=== PATIENT | female | born 1990 | race Caucasian/White ===

== ENCOUNTER 2016-09-22 11:22 | Emergency (ER) | payer BC ==
[2016-09-22 11:27] VITALS: RESP 18
[2016-09-22] MEDS ORDERED: predniSONE 50 MG TAB PO STA (11:58)
--- NOTE | 2016-09-22 12:10 | ED ---
Back Pain HPI - General Chief Complaint: Back Pain/Injury Stated Complaint: back pain Time Seen by Provider: 09/22/16 11:38 Source: patient, RN notes reviewed Limitations: no limitations - History of Present Illness Initial Comments: Patient is a 26-year-old female presents to the emergency room for evaluation of left-sided low back pain. Patient states she woke up this morning with low back pain that radiates into her left hip and leg. Patient states he had back pain before. Patient denies any specific injury or trauma to her back. Patient does states she recently began a workout regimen since April. Patient is states she was in a car for 2 hours yesterday. Patient denies saddle anesthesia. Patient denies urinary or fecal incontinence. Patient states this morning when she woke up, the pain is radiating to the left side of her hip and felt like a burning sensation. Patient states she still able to walk. Patient denies calf pain. Patient denies any pain or burning during urination, trouble urinating or blood in urine. Patient has headache or dizziness. Patient denies any other symptoms or complaints. - Related Data Previous Rx's Medication Instructions Recorded Orphenadrine [Norflex] 100 mg PO Q12H PRN #12 tablet.er 09/22/16 predniSONE 50 mg PO DAILY #5 tab 09/22/16 Allergies Allergy/AdvReac Type Severity Reaction Status Date / Time No Known Allergies Allergy Verified 09/22/16 11:49 Review of Systems ROS Statement: Those systems with pertinent positive or pertinent negative responses have been documented in the HPI. ROS Other: All systems not noted in ROS Statement are negative. Past Medical History Past Medical History: Asthma History of Any Multi-Drug Resistant Organisms: None Reported Past Surgical History: No Surgical Hx Reported Additional Past Surgical History / Comment(s): wisdom teeth extraction Past Psychological History: No Psychological Hx Reported Smoking Status: Never smoker Past Alcohol Use History: Rare Past Drug Use History: None Reported General Exam - General Exam Comments Initial Comments: sitting in exam room, no distress. Limitations: no limitations General appearance: alert, in no apparent distress Head exam: Present: atraumatic, normocephalic, normal inspection Eye exam: Present: normal appearance ENT exam: Present: normal exam Neck exam: Present: normal inspection Respiratory exam: Present: normal lung sounds bilaterally. Absent: respiratory distress Cardiovascular Exam: Present: regular rate, normal rhythm, normal heart sounds Back exam: Present: normal inspection Expanded Back exam: Sciatic Notch Tenderness: Left Neurological exam: Present: alert, oriented X3, CN II-XII intact, normal gait Psychiatric exam: Present: normal affect, normal mood Skin exam: Present: warm, dry, intact, normal color. Absent: rash Course Vital Signs 09/22/16 09/22/16 11:23 12:15 Temperature 97.8 F 98.0 F Pulse Rate 108 H 88 Respiratory 18 18 Rate Blood Pressure 131/67 140/84 O2 Sat by Pulse 99 98 Oximetry Medical Decision Making - Medical Decision Making Patient is a 26-year-old female presents emergency room for evaluation left- sided low back pain. Pain radiates from left lower back and sciatic notch. Patient does appear to have sciatica. Patient be placed on prednisone and muscle relaxers and advised to follow-up with primary care provider. Patient has no neuro deficits. Patient was offered x-rays and declined. Return parameters discussed. Case discussed with Dr. Nam. Disposition Clinical Impression: Sciatica of left side Disposition: HOME SELF-CARE Condition: Good Instructions: Sciatica (ED) Additional Instructions: Alternate ice and heat. Take medications as directed. Please follow up with primary care provider in 1-2 days. If any new symptom arises or symptoms worsen , return to ER as soon as possible. Prescriptions: Orphenadrine [Norflex] 100 mg PO Q12H PRN #12 tablet.er PRN Reason: Pain predniSONE 50 mg PO DAILY #5 tab Referrals: Yfn Corbett DO [Primary Care Provider] - 1-2 days Time of Disposition: 12:08
[2016-09-22 12:19] VITALS: BP 140/84; PULSE 88; TEMP 98
== END 2016-09-22 12:15 | disposition home or self-care (01) ==
LOC: EC 11:22
DX: M54.32 Sciatica, left side (principal)
CPT/HCPCS: 99283; J7512

== ENCOUNTER 2017-08-03 17:01 | Emergency (ER) | payer BC ==
[2017-08-03 17:07] VITALS: BP 138/85; PULSE 101; RESP 16; TEMP 98.5
[2017-08-03] MEDS ORDERED: IBUPROFEN 600 MG TAB PO STA (17:21)
--- NOTE | 2017-08-03 17:23 | ED ---
Lower Extremity Injury HPI - General Chief Complaint: Extremity Injury, Lower Stated Complaint: Foot pain Time Seen by Provider: 08/03/17 17:15 Source: patient, RN notes reviewed Mode of arrival: wheelchair Limitations: no limitations - History of Present Illness Initial Comments: This is a 27-year-old female who presents to the emergency department with chief complaint of left foot/ankle injury. Patient states approximately one hour ago she fell down 3 steps. She states that she twisted her left foot and ankle. She states that she has difficulty bearing weight and ambulating. The majority of her pain is on the lateral aspect of her foot. Denies any other injuries or trauma. Denies head injury. Denies recent fevers or chills, chest pain or shortness of breath, abdominal pain, nausea or vomiting. - Related Data Home Medications Medication Instructions Recorded Confirmed Levothyroxine Sodium [Synthroid] 100 mcg PO DAILY 08/03/17 08/03/17 Allergies Allergy/AdvReac Type Severity Reaction Status Date / Time No Known Allergies Allergy Verified 08/03/17 17:07 Review of Systems ROS Statement: Those systems with pertinent positive or pertinent negative responses have been documented in the HPI. ROS Other: All systems not noted in ROS Statement are negative. Past Medical History Past Medical History: Asthma Additional Past Medical History / Comment(s): thyroid radioactive treatment History of Any Multi-Drug Resistant Organisms: None Reported Past Surgical History: No Surgical Hx Reported Additional Past Surgical History / Comment(s): wisdom teeth extraction Past Psychological History: No Psychological Hx Reported Smoking Status: Never smoker Past Alcohol Use History: Occasional Past Drug Use History: None Reported General Exam - General Exam Comments Initial Comments: General: Awake and alert, well-developed; in no apparent distress. HEENT: Head atraumatic, normocephalic. Pupils are equal, round and reactive to light. Extraocular movements intact. Oropharynx moist without erythema or exudate. Neck: Supple. Normal ROM. Cardiovascular: Regular rate and rhythm. No murmurs, rubs or gallops. Chest symmetrical. Respiratory: Lungs clear to auscultation bilaterally. No wheezes, rales or rhonchi. Normal respiratory effort with no use of accessory muscles. Musculoskeletal: Normal range of motion of the left ankle. There is tenderness distal to the lateral malleolus and along the fifth metatarsal of the left foot. Generalized mild soft tissue swelling on the lateral aspect. No medial malleolar tenderness. Sensation is intact. Pedal pulses are 2+ equal and palpable bilaterally. No tenderness on palpation of the proximal tibia and fibula. Skin: [place], warm and dry without rashes or lesions. Neurological: Alert and oriented x3. CN II-XII grossly intact. Speech is fluent and answers are appropriate. No focal neuro deficits. Psychiatric: Normal mood and affect. No overt signs of depression or anxiety noted. Limitations: no limitations Course Vital Signs 08/03/17 17:04 Temperature 98.5 F Pulse Rate 101 H Respiratory 16 Rate Blood Pressure 138/85 O2 Sat by Pulse 99 Oximetry Medical Decision Making - Medical Decision Making This is a 27-year-old female presents to the emergency department with chief complaint of left foot and ankle injury. Patient fell down 3 steps prior to arrival and twisted her left ankle. She is tender on the lateral aspect of her left ankle and foot. X-ray was obtained and revealed no evidence for acute fractures or dislocations. There is pronounced soft tissue swelling. Patient likely suffering from an acute ankle sprain. Patient given an air cast. She will also be given contact information for orthopedics if no improvement in her symptoms. Patient vital signs are stable and she is in no acute distress. She will be discharged home at this time. Recommend rest, ice, elevation and ibuprofen as needed for pain. She is in agreement with plan and voices understanding. All questions answered. - Radiology Data Radiology results: report reviewed, image reviewed X-ray left ankle and left foot impression: Pronounced soft tissue swelling about the left ankle joint with no acute fracture or dislocation in the left ankle or foot. Disposition Clinical Impression: Ankle sprain and strain Disposition: HOME SELF-CARE Condition: Good Instructions: Ankle Sprain (ED), Ankle Stirrup Splint (ED) Additional Instructions: Please rest, ice, elevate and wear air splint while ambulating. May take Tylenol or ibuprofen for pain and inflammation. Please follow up with Dr. Glover, orthopedics, if no improvement in symptoms. Please follow up with primary care provider within 1-2 days. Return to emergency department if symptoms should worsen or any concerns arise. Is patient prescribed a controlled substance at d/c from ED?: No Referrals: Jose Jones DO [Primary Care Provider] - 1-2 days Time of Disposition: 18:23
--- NOTE | 2017-08-03 18:13 | XR ---
EXAMINATION TYPE: XR ankle complete LT, XR foot complete LT DATE OF EXAM: 08/03/2017 CLINICAL HISTORY: Ankle and foot pain after fall TECHNIQUE: Frontal, lateral and oblique images of the left ankle and foot are obtained. COMPARISON: None. FINDINGS: There is pronounced soft tissue swelling over the left ankle joint. There is no acute frac ture/dislocation evident in the left ankle. The ankle mortise appears within normal limits. Small in fracalcaneal plantar heel spur is present. Incidental note is made of a type II navicular bone There is no acute fracture or dislocation evident in the foot. The joint spaces in the left foot are prese rved. Overlying soft tissue is unremarkable. IMPRESSION: Pronounced soft tissue swelling about the left ankle joint with no acute fracture or dislocation in t he left ankle or foot.
== END 2017-08-03 18:52 | disposition home or self-care (01) ==
LOC: EC 17:01
DX: S93.402A Sprain of unspecified ligament of left ankle, initial encounter (principal); S96.912A Strain of unspecified muscle and tendon at ankle and foot level, left foot, initial encounter; Z79.899 Other long term (current) drug therapy; W10.9XXA Fall (on) (from) unspecified stairs and steps, initial encounter; X50.1XXA Overexertion from prolonged static or awkward postures, initial encounter
CPT/HCPCS: 73610; 73630; 99283; 29515; L4350

== ENCOUNTER → 2020-10-06 | Outpatient (CLI) | payer BC ==
--- NOTE | 2020-10-06 12:16 | US ---
EXAMINATION TYPE: Ultrasound OB <= 14 week transvaginal DATE OF EXAM: 10/06/2020 12:03 PM COMPARISON: NONE CLINICAL HISTORY: 30-year-old female O76 absent heart tones. EXAM PERFORMED: Transvaginal (TV) and Transabdominal (TA) FINDINGS: EXAM MEASUREMENTS: GESTATIONAL AGE / DATING Physician Established: (10 weeks/4 days) EDC: 04/30/2021 Dates by LMP: (10 weeks/4 days) EDC: 04/30/2021 Dates by First Scan: No previous this is first scan Dates by Current Scan for: (10 weeks/4 days) EDC: 04/30/2021 MATERNAL ANATOMY Uterus: 10.8 x 7.8 x 8 Right Ovary: Obscured by bowel gas. Left Ovary: Obscured by bowel gas. Post CDS / Adnexa: wnl Presence of free fluid: no Presence of corpus luteal cyst: no Presence of subchorionic bleed: no GESTATION / SURVEY CRL: 3.67 cm (10 weeks/4 days) Yolk Sac (normal less than 6mm): 5 mm Heart Rate: 170 bpm Rhythm: Normal IUP: Viable IUP Beta HcG (if available): Not available at this time IMPRESSION: 1. Single live intrauterine with estimated gestational age of 10 weeks 4 days by LMP. Curre nt ultrasound biometry is exactly concordant. 2. Given heart rate at the upper limits of normal (170 BPM), short interval follow-up can be co nsidered. 3. Otherwise, complete survey recommended at 18-20 weeks.
== END | disposition home or self-care (01) ==
LOC: RADUSWWP 11:33
PROVIDERS: ATTEND Obstetrics & Gynecology Obstetrics
DX: O76 Abnormality in fetal heart rate and rhythm complicating labor and delivery (principal); Z3A.00 Weeks of gestation of pregnancy not specified
CPT/HCPCS: 76801; 76817

== ENCOUNTER → 2021-02-14 | Outpatient (CLI) | payer BC ==
[~2021-02-14] MED LIST: AMPICILLIN 2,000 MG VIAL IVPB ONE; BETAMET ACET-BETAMETH SOD PHOS 6 MG/ML MDV IM ONE; LACTATED RINGERS 1,000 ML BAG IV ONE; SODIUM CHLORIDE 0.9% 100 ML BAG ONE
--- NOTE | 2021-02-15 10:16 | US ---
EXAMINATION TYPE: US OB >= 14 wk fetus DATE OF EXAM: 02/15/2021 COMPARISON: None CLINICAL HISTORY: GROWTH, ALISON, POSITION, TECHNIQUE: OBTA GESTATIONAL AGE / DATING Physician Established: (29 weeks/2 days) EDC: 04/30/2021 Dates by LMP: (29 weeks/2 days) EDC: 04/30/2021 Dates by First Scan: (29 weeks/2 days) EDC: 04/30/2021 Dates by Current Scan: (30 weeks/0 days) EDC: 04/25/2021 SURVEY IUP: Single PLACENTA: Anterior PREVIA: No Previa ALISON: 0 cm CERVICAL LENGTH (transabdominal: norm > 3.0cm): 4.1 cm BIOMETRY PRESENTATION: Variable LIE: Transverse with head maternal L BPD: 7.3 cm 29 weeks / 3 days HC: 27.7 cm 30 weeks / 2 days AC: 27.2 cm 31 weeks / 2 days FL: 5.8 cm 30 weeks / 3 days ESTIMATED WEIGHT IN GRAMS: 1635 grams ESTIMATED WEIGHT IN LBS/OZ: 3 lbs. 10 oz. WEIGHT PERCENTAGE BASED ON ESTABLISHED DATES: 87% HC/AC: 1.0 Normal FL/AC: 21.4 Normal HEART RATE: 168 bpm RHYTHM: Normal No significant amniotic fluid is identified. IMPRESSION: 1. Single intrauterine gestation estimated at 30 weeks 0 days gestation based on current ultrasound m easurements. Cardiac activity in the cephalic presentation fetus is 168 bpm. 2. No significant amniotic fluid identified. 3. Preliminary results were reviewed by [facility].
== END ==
LOC: FBPOP 23:00
PROVIDERS: ATTEND Obstetrics & Gynecology Obstetrics
DX: O42.92 Full-term premature rupture of membranes, unspecified as to length of time between rupture and onset of labor (principal); Z3A.39 39 weeks gestation of pregnancy
CPT/HCPCS: 76805; 96361; 96365; 96372; 99214

== ENCOUNTER 2024-02-12 22:42 | Emergency (ER) | payer BC ==
[2024-02-12 23:01] VITALS: RESP 18; TEMP 97.8
--- NOTE | 2024-02-12 23:33 | ED ---
Female Urogenital HPI - General Chief complaint: Vaginal Bleeding Stated complaint: Vaginal bleeding Time Seen by Provider: 02/12/24 23:02 Source: patient, RN notes reviewed Mode of arrival: ambulatory Limitations: no limitations - History of Present Illness Initial comments: This is a 33-year-old female who presents to the emergency department for vagin al bleeding. Patient states that she has had vaginal bleeding ongoing for the last 3 weeks. She went to [facility] on 02/07. States that she had an ultrasound done and was told that something was blocking the right ovary, but she is unsure what. She tried to make an appointment with her RAIL CAR REPAIRER but was unable to get in until later this month. After that visit the bleeding had stopped for 3 days and then started again today. States that she has changed her diet and read that that could cause problems with her bleeding. She is not on any control or hormonal treatments. States that her periods are usually always regular. She is on thyroid medication and has not had her thyroid checked in about 6 months. She did start to develop pelvic pain and cramping today. She had some nausea earlier that has since resolved. States that she is changing pads about every 30 minutes. MD Complaint: vaginal bleeding Last Menstrual Period: 01/20/24 - Related Data Home Medications Medication Instructions Recorded Confirmed Levothyroxine Sodium [Synthroid] 100 mcg PO DAILY 08/03/17 08/03/17 Allergies Allergy/AdvReac Type Severity Reaction Status Date / Time No Known Allergies Allergy Verified 08/03/17 17:07 Review of Systems ROS Statement: Those systems with pertinent positive or pertinent negative responses have been documented in the HPI. ROS Other: All systems not noted in ROS Statement are negative. Past Medical History Past Medical History: Asthma Additional Past Medical History / Comment(s): thyroid radioactive treatment History of Any Multi-Drug Resistant Organisms: None Reported Past Surgical History: No Surgical Hx Reported Additional Past Surgical History / Comment(s): wisdom teeth extraction, c- section (02/18/21) Past Psychological History: No Psychological Hx Reported Smoking Status: Never smoker Past Alcohol Use History: Occasional Past Drug Use History: None Reported General Exam Limitations: no limitations General appearance: alert, in no apparent distress Head exam: Present: atraumatic, normocephalic, normal inspection Respiratory exam: Present: normal lung sounds bilaterally. Absent: respiratory distress, wheezes, rales, rhonchi, stridor Cardiovascular Exam: Present: regular rate, normal rhythm, normal heart sounds. Absent: systolic murmur, diastolic murmur, rubs, gallop, clicks GI/Abdominal exam: Present: soft, normal bowel sounds. Absent: distended, tenderness, guarding, rebound, rigid Neurological exam: Present: alert, oriented X3, CN II-XII intact Psychiatric exam: Present: normal affect, normal mood Skin exam: Present: warm, dry, intact, normal color. Absent: rash Course Vital Signs 02/12/24 02/13/24 02/13/24 22:55 01:21 02:19 Temperature 97.8 F Pulse Rate 105 H 72 74 Respiratory 18 18 18 Rate Blood Pressure 124/83 101/49 97/58 O2 Sat by Pulse 96 97 98 Oximetry Medical Decision Making - Medical Decision Making This is a 33-year-old female who presents to the emergency department for vaginal bleeding. Was pt. sent in by a medical professional or institution? @ -No Did you speak to anyone other than the patient for history? @ -No Did you review nursing and triage notes? @ -Yes, and I agree, it is accurate with regards to the patient's symptoms. Were old charts reviewed? @ -Hemoglobin at [facility] from 02/08/2024 which was 10.3. Differential Diagnosis? @ -Differential Vaginal Bleeding: Spontaneous , threatened , molar , ectopic , incompetent cervix, placenta previa, uterine rupture, dysfunctional uterine bleeding, hemorrhage, uterine fibroids, malignancy, coagulopathy, PID, cervicitis, adenomyosis, vaginal trauma, this is not meant to be an all- inclusive list. EKG interpreted by me (3pts min.)? @ -Not obtained X-rays interpreted by me (1pt min.)? @ -Not obtained CT interpreted by me (1pt min.)? @ -Not obtained U/S interpreted by me (1pt. min.)? @ -Transvaginal ultrasound obtained. My interpretation identifies no evidence of an ovarian torsion. What testing was considered but not performed? (CT, X-rays, U/S, labs)? Why? @ -None What meds were considered but not given? Why? @ -None Did you discuss the management of the patient with other professionals? @ -No Did you reconcile home meds? @ -No Was smoking cessation discussed for >3mins.? @ -No Was critical care preformed (if so, how long)? @ -No Were there social determinants of health that impacted care today? How? (Homelessness, low income, unemployed, alcoholism, drug addiction, transportation, low edu. Level, literacy, decrease access to med. care, halfway, rehab)? @ -No Was there de-escalation of care discussed even if they declined? (Discuss DNR or withdrawal of care, Hospice)? @ -No What co-morbidities impacted this encounter? (DM, HTN, Smoking, COPD, CAD, Cancer, CVA, Hep., AIDS, mental health diagnosis, sleep apnea, morbid obesity)? @ -Thyroid disorder Was patient admitted / discharged? @ -Discharged. Lab work demonstrates a hemoglobin of 10.5. This is stable whe n compared with 02/07 at [facility] when it was 10.3. TSH elevated at 65.1, however free T4 is within normal limits at 1.05. Urinalysis demonstrates blood but is not overly suggestive of infection. Transvaginal ultrasound obtained demonstrating a thickened endometrial echocomplex c orresponding to patient's history of a vaginal bleed. A left ovarian cyst is also noted. Findings reviewed with the patient. Advised [id number] NSAIDs to help with both pain and bleeding. She will otherwise follow-up with her RAIL CAR REPAIRER for further evaluation and management. Patient discharged home in stable condition. Case discussed with ED attending Dr. Keane. Return precautions reviewed in depth, the patient is instructed to return to the emergency department with any new, worsening, or concerning symptoms. Patient verbalized understanding. Undiagnosed new problem with uncertain prognosis? @ -None Drug Therapy requiring intensive monitoring for toxicity (Heparin, Nitro, Insulin, Cardizem)? @ -None Were any procedures done? @ -None Diagnosis/symptom? @ -Dysfunctional uterine bleeding Acute, or Chronic, or Acute on Chronic? @ -Acute Uncomplicated (without systemic symptoms) or Complicated (systemic symptoms)? @ -Uncomplicated Side effects of treatment? @ -None Exacerbation, Progression, or Severe Exacerbation] @ -Not applicable Poses a threat to life or bodily function? @ -No - Lab Data Result diagrams: 02/12/24 23:26 02/12/24 23:26 Lab Results 1202/12/24 02/12/24 Range/Units 23:26 23:26 23:26 WBC 7.8 (3.8-10.6) k/uL RBC 3.61 L (3.80-5.40) m/uL Hgb 10.5 L (11.4-16.0) gm/dL Hct 30.4 L (34.0-46.0) % MCV 84.2 (80.0-100.0) fL MCH 29.1 (25.0-35.0) pg MCHC 34.6 (31.0-37.0) g/dL RDW 13.8 (11.5-15.5) % Plt Count 361 (150-450) k/uL MPV 7.5 Neutrophils % 59 % Lymphocytes % 31 % Monocytes % 5 % Eosinophils % 3 % Basophils % 1 % Neutrophils # 4.6 (1.3-7.7) k/uL Lymphocytes # 2.4 (1.0-4.8) k/uL Monocytes # 0.4 (0-1.0) k/uL Eosinophils # 0.3 (0-0.7) k/uL Basophils # 0.1 (0-0.2) k/uL Hypochromasia Slight PT 10.2 (10.0-12.5) sec INR 0.9 (<1.2) APTT 24.7 (22.0-30.0) sec Sodium 133 L (137-145) mmol/L Potassium 3.8 (3.5-5.1) mmol/L Chloride 101 (98-107) mmol/L Carbon Dioxide 22 (22-30) mmol/L Anion Gap 10 mmol/L BUN 10 (7-17) mg/dL Creatinine 0.93 (0.52-1.04) mg/dL Est GFR (CKD-EPI)AfAm >90 (>60 ml/min/1.73 sqM) Est GFR (CKD-EPI)NonAf 82 (>60 ml/min/1.73 sqM) Glucose 89 (74-99) mg/dL Plasma Lactic Acid Albert (0.7-2.0) mmol/L Calcium 9.3 (8.4-10.2) mg/dL Total Bilirubin 0.5 (0.2-1.3) mg/dL AST 23 (14-36) U/L ALT 23 (4-34) U/L Alkaline Phosphatase 58 (38-126) U/L Total Protein 6.5 (6.3-8.2) g/dL Albumin 4.0 (3.5-5.0) g/dL TSH 65.100 H (0.465-4.680) mIU/L Free T4 1.05 (0.78-2.19) ng/dL Urine Color Urine Appearance (Clear) Urine pH (5.0-8.0) Ur Specific [place] (1.001-1.035) Urine Protein (Negative) Urine Glucose (UA) (Negative) Urine Ketones (Negative) Urine Blood (Negative) Urine Nitrite (Negative) Urine Bilirubin (Negative) Urine Urobilinogen (<2.0) mg/dL Ur Leukocyte Esterase (Negative) Urine RBC (0-5) /hpf Urine WBC (0-5) /hpf Ur Squamous Epith Cells (0-4) /hpf Urine Bacteria (None) /hpf Urine HCG, Qual (Not Detectd) 02/12/24 02/13/24 02/13/24 Range/Units 23:26 00:47 00:47 WBC (3.8-10.6) k/uL RBC (3.80-5.40) m/uL Hgb (11.4-16.0) gm/dL Hct (34.0-46.0) % MCV (80.0-100.0) fL MCH (25.0-35.0) pg MCHC (31.0-37.0) g/dL RDW (11.5-15.5) % Plt Count (150-450) k/uL MPV Neutrophils % % Lymphocytes % % Monocytes % % Eosinophils % % Basophils % % Neutrophils # (1.3-7.7) k/uL Lymphocytes # (1.0-4.8) k/uL Monocytes # (0-1.0) k/uL Eosinophils # (0-0.7) k/uL Basophils # (0-0.2) k/uL Hypochromasia PT (10.0-12.5) sec INR (<1.2) APTT (22.0-30.0) sec Sodium (137-145) mmol/L Potassium (3.5-5.1) mmol/L Chloride (98-107) mmol/L Carbon Dioxide (22-30) mmol/L Anion Gap mmol/L BUN (7-17) mg/dL Creatinine (0.52-1.04) mg/dL Est GFR (CKD-EPI)AfAm (>60 ml/min/1.73 sqM) Est GFR (CKD-EPI)NonAf (>60 ml/min/1.73 sqM) Glucose (74-99) mg/dL Plasma Lactic Acid Albert 0.9 (0.7-2.0) mmol/L Calcium (8.4-10.2) mg/dL Total Bilirubin (0.2-1.3) mg/dL AST (14-36) U/L ALT (4-34) U/L Alkaline Phosphatase (38-126) U/L Total Protein (6.3-8.2) g/dL Albumin (3.5-5.0) g/dL TSH (0.465-4.680) mIU/L Free T4 (0.78-2.19) ng/dL Urine Color Light Red Urine Appearance Cloudy H (Clear) Urine pH 5.0 (5.0-8.0) Ur Specific [place] 1.014 (1.001-1.035) Urine Protein 1+ H (Negative) Urine Glucose (UA) Negative (Negative) Urine Ketones 3+ H (Negative) Urine Blood Large H (Negative) Urine Nitrite Negative (Negative) Urine Bilirubin Negative (Negative) Urine Urobilinogen <2.0 (<2.0) mg/dL Ur Leukocyte Esterase Trace H (Negative) Urine RBC >182 H (0-5) /hpf Urine WBC 3 (0-5) /hpf Ur Squamous Epith Cells 4 (0-4) /hpf Urine Bacteria Rare H (None) /hpf Urine HCG, Qual Not Detected (Not Detectd) - Radiology Data Radiology results: report reviewed, image reviewed Disposition Clinical Impression: Dysfunctional uterine bleeding Disposition: HOME SELF-CARE Instructions (If sedation given, give patient instructions): Abnormal (Dysfunctional) Uterine Bleeding (ED) Additional Instructions: Return to the emergency department with any new, worsening, or concerning symptoms. Taking anti-inflammatories like ibuprofen or naproxen [id number] can help slow down and reduce the bleeding. Follow-up with your RAIL CAR REPAIRER as scheduled. Is patient prescribed a controlled substance at d/c from ED?: No Referrals: Ras Barney MD [Primary Care Provider] - 1-2 days Time of Disposition: 03:47
[2024-02-12 23:40] LABS: Basophils # (A) 0.1 k/uL (0-0.2); Basophils % (A) 1 %; Eosinophils # (A) 0.3 k/uL (0-0.7); Eosinophils % (A) 3 %; HCT 30.4 % (34.0-46.0); HGB 10.5 gm/dL (11.4-16.0); Hypochromasia Slight; Lymphocytes # (A) 2.4 k/uL (1.0-4.8); Lymphocytes % (A) 31 %; MCH 29.1 pg (25.0-35.0); MCHC 34.6 g/dL (31.0-37.0); MCV 84.2 fL (80.0-100.0); Mean Platelet Volume 7.5; Monocytes # (A) 0.4 k/uL (0-1.0); Monocytes % (A) 5 %; Neutrophils # (A) 4.6 k/uL (1.3-7.7); Neutrophils % (A) 59 %; Platelet Count 361 k/uL (150-450); RBC 3.61 m/uL (3.80-5.40); RDW 13.8 % (11.5-15.5); WBC 7.8 k/uL (3.8-10.6)
[2024-02-12 23:49] LABS: INR 0.9 (<1.2); Partial Thromboplastin Time 24.7 sec (22.0-30.0); Prothrombin Time 10.2 sec (10.0-12.5)
[2024-02-12 23:50] LABS: ALT 23 U/L (4-34); AST 23 U/L (14-36); African American GFR (CKD) >90 (>60 ml/min/1.73 sqM); Alkaline Phosphatase 58 U/L (38-126); Anion Gap 10 mmol/L; Blood Urea Nitrogen 10 mg/dL (7-17); Calcium 9.3 mg/dL (8.4-10.2); Carbon Dioxide 22 mmol/L (22-30); Chloride 101 mmol/L (98-107); Glucose 89 mg/dL (74-99); Non-African American GFR(CKD) 82 (>60 ml/min/1.73 sqM); Potassium 3.8 mmol/L (3.5-5.1); Sodium 133 mmol/L (137-145); Total Bilirubin 0.5 mg/dL (0.2-1.3); Total Protein 6.5 g/dL (6.3-8.2)
[2024-02-13] MEDS: KETOROLAC 15 MG/ML 1 ML VIAL IVP STA (00:38)
[2024-02-13 00:45] LABS: T4, Free (Free Thyroxine) 1.05 ng/dL (0.78-2.19)
[2024-02-13 00:59] LABS: Appearance,Urine Cloudy (Clear); Bacteria,Urine Rare /hpf; Bilirubin,Urine Negative (Negative); Blood,Urine Large (Negative); Color,Urine Light Red; Glucose,Urine (UA) Negative (Negative); Ketones,Urine 3+ (Negative); Leukocyte Esterase,Urine Trace (Negative); Nitrite,Urine Negative (Negative); Protein,Urine 1+ (Negative); RBC,Urine >182 /hpf (0-5); Specific Gravity,Urine 1.014 (1.001-1.035); Squamous Epithelial Cell,Urine 4 /hpf (0-4); Urobilinogen,Urine <2.0 mg/dL (<2.0); WBC,Urine 3 /hpf (0-5)
[2024-02-13 02:20] VITALS: PULSE 74
--- NOTE | 2024-02-13 03:29 | US ---
EXAM: US Pelvis Transvaginal CLINICAL HISTORY: Female, 33 years old with history of Pelvic pain and vaginal bleeding; Patient states vaginal bleeding for 3+ weeks with clotting. Had TV ultrasound done at [facility] a few days ago TECHNIQUE: Transvaginal pelvic ultrasound. 35 images COMPARISON: NONE FINDINGS: Date of LMP: Bleeding for 3+ weeks Anteverted Uterus: Normal echotexture, contour, and size, measuring about 8.6 x 4.9 x 5.9cm. Endometrial Stripe: Normal echotexture measuring about 2.2 cm in thickness Right Ovary: Obscured by overlying bowel gas Left Ovary: Measuring about 5.2 x 5.2 x 5.0 containing a 4.3 x 4.2 x 3. 5cm cyst. IMPRESSION: 1. Thickened endometrial echocomplex corresponds to patient's history of vaginal bleed. Consider follow-up after 1-2 menstrual cycles. If thickened endometrial echo complex persists, hysteroscopy or biopsy may help to further evaluate. 2. Left ovarian cyst.
[2024-02-13 03:59] VITALS: BP 111/55
== END 2024-02-13 03:58 | disposition home or self-care (01) ==
LOC: EC 22:42
DX: N93.8 Other specified abnormal uterine and vaginal bleeding (principal); N83.202 Unspecified ovarian cyst, left side; E07.9 Disorder of thyroid, unspecified; Z79.890 Hormone replacement therapy
CPT/HCPCS: 36415; 76830; 80053; 81001; 81025; 83605; 84439; 84443; 85025; 85610; 85730; 93976; 96374; 99284

== ENCOUNTER 2024-08-23 12:05 | Emergency (ER) | payer BC ==
--- NOTE | 2024-08-23 12:22 | ED ---
General Adult HPI - General Source: patient, RN notes reviewed Mode of arrival: ambulatory Limitations: no limitations <Narendra Sargentling - Last Filed: 08/23/24 12:19> - General Source: patient, RN notes reviewed, old records reviewed <Roman Michelle - Last Filed: 08/23/24 17:18> - General Chief complaint: Chest Pain Stated complaint: Chest Pain/Headache Time Seen by Provider: 08/23/24 12:14 - History of Present Illness Initial comments: Quick note: This is a 34-year-old female with history of asthma presenting for mid chest pain starting last night. Patient states pain is intermittent, described as sharp, lasting about 30 seconds before spontaneous resolution. Patient endorses associated presyncope and right facial numbness. Denies nu mbness in extremities or associated weakness. Patient states she is currently being treated for cellulitis following an insect bite behind her right ear. Patient states that she suspects the antibiotics may be causing her chest pain, stating symptoms started about 5 hours following use of the antibiotic. Patient otherwise denies history of cardiac issues or chest pain. Denies fever, chills, dyspnea, dizziness, diaphoresis, abdominal pain, N/V/D, urinary symptoms. (Jaylan Sargent) 34-year-old female presents emergency department for some nonspecific symptoms. Patient has been on antibiotics for possible bug bite on the posterior aspect of her right neck. Does feel a bump there and unknown how long it has been there for. States that over the last few months to weeks she has been having episodes of almost a near syncope where she feels some pain and then "electric shock" sensation that shoots up to her head. She feels like she is going to pass out. Last for approximately 30 seconds. Gets sharp chest pain with this as well. Had an episode with this after she took her antibiotic and decided to come to the ER for evaluation. Most of her symptoms have been ongoing for weeks to months. Has not followed up with anyone for it. She is concerned as she does have a family history of brain tumors and brain cancer. Endorses it could be related to anxiety. Presents for further evaluation at this time. Currently has no symptoms. Originally seen as a quick note I evaluated patient after workup was completed. (Roman Michelle) - Related Data Home Medications Medication Instructions Recorded Confirmed Levothyroxine Sodium [Synthroid] 100 mcg PO DAILY 08/03/17 08/03/17 Allergies Allergy/AdvReac Type Severity Reaction Status Date / Time No Known Allergies Allergy Verified 08/23/24 12:13 Review of Systems ROS Other: All systems not noted in ROS Statement are negative. <Jaylan Sargent - Last Filed: 08/23/24 12:19> ROS Other: All systems not noted in ROS Statement are negative. <Roman iMchelle - Last Filed: 08/23/24 17:18> ROS Statement: Those systems with pertinent positive or pertinent negative responses have been documented in the HPI. Review of Systems: CONST: Denies fever EYES: Denies blurry vision ENT: Denies nasal congestion C/V: Denies Chest pain RESP: Denies shortness of breath GI: Denies abdominal pain : Denies dysuria SKIN: Denies rash. MSK: Denies joint pain. NEURO: Denies headache (Roman Michelle) Past Medical History Past Medical History: Asthma Additional Past Medical History / Comment(s): thyroid radioactive treatment History of Any Multi-Drug Resistant Organisms: None Reported Past Surgical History: No Surgical Hx Reported Additional Past Surgical History / Comment(s): wisdom teeth extraction, c- section (02/18/21) Past Psychological History: No Psychological Hx Reported Smoking Status: Never smoker Past Alcohol Use History: Occasional Past Drug Use History: None Reported <Jaylan Sargent - Last Filed: 08/23/24 12:19> General Exam Limitations: no limitations <Jaylan Sargent - Last Filed: 08/23/24 12:19> <Roman Michelle - Last Filed: 08/23/24 17:18> - General Exam Comments Initial Comments: Visual Physical Exam Vital signs reviewed General: Well-appearing, nontoxic. Patient appears slightly anxious. Head: Normocephalic, atraumatic Eyes: PERRLA, EOMI ENT: Airway patent Chest: Nonlabored breathing Skin: No visual rash, normal skin tone Neuro: Alert and oriented 3 Musculoskeletal: No gross abnormalities (Jaylan Sargent) General: Appears in no acute distress. HEAD: Normal with no signs of head trauma. EYES: PERRLA, EOMI, conjunctiva normal, no discharge. Pupils are 3 mm and equal bilaterally. ENT: Hearing grossly intact, normal oropharynx. RESPIRATORY: Clear breath sounds bilaterally. No wheezes, rales, or rhonchi. C/V: Regular rate and rhythm. S1 and S2 auscultated, no edema, peripheral pulses 2+ and intact throughout ABD: Abd is soft, nontender, nondistended EXT: Normal range of motion, no obvious deformity SKIN: No rashes or lesions observed on exposed skin. Patient does have what appears to be an enlarged lymph node located behind the right ear. No obvious fluctuance. No obvious erythema. No evidence of infection. NEURO: Alert and oriented x 4. Cranial nerves II-XII intact. No focal sensory or strength deficits. GCS 15. (Roman Michelle) Course Vital Signs 08/23/24 08/23/24 12:11 15:25 Temperature 97.8 F 98.8 F Pulse Rate 90 87 Respiratory 20 16 Rate Blood Pressure 185/136 124/87 O2 Sat by Pulse 99 98 Oximetry Medical Decision Making <Jaylan Sargent - Last Filed: 08/23/24 12:19> - Lab Data Result diagrams: 08/23/24 12:31 08/23/24 12:31 - EKG Data -: EKG Interpreted by Me <Roman Michelle - Last Filed: 08/23/24 17:18> - Medical Decision Making I completed the quick note portion of this chart signed EULALIO Helm (Jaylan Sargent) Was pt. sent in by a medical professional or institution ([facility], [facility], urgent care, hospital, or skilled nursing...) When possible be specific @ -No Did you speak to anyone other than the patient for history (EMS, parent, family, police, friend...)? What history was obtained from this source @ -No Did you review nursing and triage notes (agree or disagree)? Why? @ -I reviewed and agree with nursing and triage notes Were old charts reviewed (outside hosp., previous admission, EMS record, old EKG, old radiological studies, urgent care reports/EKG's, skilled nursing records)? Report findings @ -No old charts were reviewed Differential Diagnosis (chest pain, altered mental status, abdominal pain women, abdominal pain men, vaginal bleeding, weakness, fever, dyspnea, syncope, headache, dizziness, GI bleed, back pain, seizure, CVA, palpatations, mental health, musculoskeletal)? @ -Anxiety, near syncope, dehydration, cellulitis. This list is not all inclusive. EKG interpreted by me (3pts min.). @ -As above X-rays interpreted by me (1pt min.). @ -Chest x-ray shows no obvious acute cardiopulmonary process. CT interpreted by me (1pt min.). @ -CT brain reveals no obvious acute intracranial process. U/S interpreted by me (1pt. min.). @ -None done What testing was considered but not performed or refused? (CT, X-rays, U/S, labs)? Why? @ -None What meds were considered but not given or refused? Why? @ -None Did you discuss the management of the patient with other professionals (professionals i.e. , PA, [facility], lab, RT, psych nurse, rn social work, tobacco stripper hand, teacher, chief digital media officer, supervisor case loading)? Give summary @ -No Was smoking cessation discussed for >3mins.? @ -No Was critical care preformed (if so, how long)? @ -No Were there social determinants of health that impacted care today? How? (Homelessness, low income, unemployed, alcoholism, drug addiction, transportation, low edu. Level, literacy, decrease access to med. care, senior living, rehab)? @ -No Was there de-escalation of care discussed even if they declined (Discuss DNR or withdrawal of care, Hospice)? DNR status @ -No What co-morbidities impacted this encounter? (DM, HTN, Smoking, COPD, CAD, Cancer, CVA, ARF, Chemo, Hep., AIDS, mental health diagnosis, sleep apnea, morb id obesity)? @ -None Was patient admitted / discharged? Hospital course, mention meds given and rou te, prescriptions, significant lab abnormalities, going to OR and other pertinent info. @ -Patient presents for some nonspecific symptoms. Does seem to be likely related to somewhat anxiety. Is recurrent none near syncopal episodes with some nonspecific chest pain that has been ongoing for weeks to months. Originally seen as a quick note. Vital signs are within acceptable limits. She is conc erned that it may be related to an antibiotic she was initially started on for possible cellulitis and took 1 dose however patient has no evidence of cellulitis on exam. Workup so far unremarkable except for microcytic anemia which does appear to be chronic for the patient and is stable. Remainder of the labs unremarkable including troponin is undetectable. Urinalysis still pending. Chest x-ray unremarkable. At this time I evaluated the patient. She has a history of brain tumors and is very concerned something may be going on. I did offer CT brain which she accepted. CT brain revealed no evidence of acute intracranial process. EKG shows no signs of acute ischemia. I updated the patient. She expressed understanding. I believe is safe for her to be discharged home with close follow-up with her PCP. She was in agreement this plan. I recommended she stop using the antibiotic as there is no evidence of cellulitis at this time. I instructed the patient to follow up with their PCP in the next 1-3 days. I explained that the patient should return to the emergency department if they experience any worsening symptoms. Strict return precautions were discussed with the patient. The patient expressed understanding of these instructions. I answered all questions that the patient had. The patient was discharged home in good condition with their prescriptions and follow up information. Undiagnosed new problem with uncertain prognosis? @ -No Drug Therapy requiring intensive monitoring for toxicity (Heparin, Nitro, Insulin, Cardizem)? @ -No Were any procedures done? @ -No Diagnosis/symptom? @ -Anxiety, lightheadedness Acute, or Chronic, or Acute on Chronic? @ -Acute Uncomplicated (without systemic symptoms) or Complicated (systemic symptoms)? @ -uncomplicated Side effects of treatment? @ -No Exacerbation, Progression, or Severe Exacerbation? @ -No Poses a threat to life or bodily function? How? (Chest pain, [place], [place], pneumonia, PE, COPD, DKA, ARF, appy, cholecystitis, CVA, Diverticulitis, Homicidal, Suicidal, threat to staff... and all critical care pts) @ - unlikely at this time (Roman Michelle) - Lab Data Lab Results 08/23/24 08/23/24 08/23/24 Range/Units 12:31 12:31 12:31 WBC 8.22 (4.50-10.00) 10*3/uL RBC 5.16 (4.10-5.20) 10*6/uL Hgb 10.6 L (12.0-15.0) g/dL Hct 34.9 L (37.2-46.3) % MCV 67.6 L (80.0-97.0) fL MCH 20.5 L (27.0-32.0) pg MCHC 30.4 L (32.0-37.0) g/dL Plt Count 428 (140-440) 10*3/uL MPV 9.1 L (9.5-12.2) fL Immature Gran % (Auto) 0.4 % Neutrophils % 59.7 % Lymphocytes % 28.1 % Monocytes % 6.7 % Eosinophils % 4.1 % Basophils % 1.0 % Immature Gran # 0.03 (0.00-0.04) 10*3/uL Neutrophils # 4.91 (1.80-7.70) 10*3/uL Lymphocytes # 2.31 (0.90-5.00) 10*3/uL Monocytes # 0.55 (0.20-1.00) 10*3/uL Eosinophils # 0.34 (0.04-0.35) 10*3/uL Basophils # 0.08 (0.00-0.10) 10*3/uL PT 10.6 (10.0-12.5) sec INR 0.9 (<1.2) APTT 24.4 (22.0-30.0) sec Sodium 137 (137-145) mmol/L Potassium 4.0 (3.5-5.1) mmol/L Chloride 104 (98-107) mmol/L Carbon Dioxide 24 (22-30) mmol/L Anion Gap 9 mmol/L BUN 14 (7-17) mg/dL Creatinine 0.72 (0.52-1.04) mg/dL Est GFR (CKD-EPI)AfAm >90 (>60 ml/min/1.73 sqM) Est GFR (CKD-EPI)NonAf >90 (>60 ml/min/1.73 sqM) Glucose 97 (74-99) mg/dL Calcium 9.4 (8.4-10.2) mg/dL Magnesium 2.0 (1.6-2.3) mg/dL Total Bilirubin 0.7 (0.2-1.3) mg/dL AST 20 (14-36) U/L ALT 19 (4-34) U/L Alkaline Phosphatase 71 (38-126) U/L Troponin I (0.000-0.034) ng/mL Total Protein 7.1 (6.3-8.2) g/dL Albumin 4.0 (3.5-5.0) g/dL 08/23/24 Range/Units 12:31 WBC (4.50-10.00) 10*3/uL RBC (4.10-5.20) 10*6/uL Hgb (12.0-15.0) g/dL Hct (37.2-46.3) % MCV (80.0-97.0) fL MCH (27.0-32.0) pg MCHC (32.0-37.0) g/dL Plt Count (140-440) 10*3/uL MPV (9.5-12.2) fL Immature Gran % (Auto) % Neutrophils % % Lymphocytes % % Monocytes % % Eosinophils % % Basophils % % Immature Gran # (0.00-0.04) 10*3/uL Neutrophils # (1.80-7.70) 10*3/uL Lymphocytes # (0.90-5.00) 10*3/uL Monocytes # (0.20-1.00) 10*3/uL Eosinophils # (0.04-0.35) 10*3/uL Basophils # (0.00-0.10) 10*3/uL PT (10.0-12.5) sec INR (<1.2) APTT (22.0-30.0) sec Sodium (137-145) mmol/L Potassium (3.5-5.1) mmol/L Chloride (98-107) mmol/L Carbon Dioxide (22-30) mmol/L Anion Gap mmol/L BUN (7-17) mg/dL Creatinine (0.52-1.04) mg/dL Est GFR (CKD-EPI)AfAm (>60 ml/min/1.73 sqM) Est GFR (CKD-EPI)NonAf (>60 ml/min/1.73 sqM) Glucose (74-99) mg/dL Calcium (8.4-10.2) mg/dL Magnesium (1.6-2.3) mg/dL Total Bilirubin (0.2-1.3) mg/dL AST (14-36) U/L ALT (4-34) U/L Alkaline Phosphatase (38-126) U/L Troponin I <0.012 (0.000-0.034) ng/mL Total Protein (6.3-8.2) g/dL Albumin (3.5-5.0) g/dL - EKG Data EKG Comments: 12-lead Electrocardiogram Interpretation Note EKG was reviewed and interpreted by myself. 12-lead ECG performed at 1220 is interpreted by me as revealing normal sinus rhythm at a rate of 84 beats per minute. [place] is normal. ND interval is 139 ms, QRS duration is 88 ms, QTc is 402 ms.. There were no ST or T wave abnormalities to suggest myocardial ischemia or injury. R wave progression across the precordium was satisfactory. By my interpretation this EKG is non-diagnostic for acute ischemia. (Roman Michelle) Disposition <Jaylan Sargent - Last Filed: 08/23/24 12:19> Is patient prescribed a controlled substance at d/c from ED?: No Time of Disposition: 15:00 <Roman Michelle - Last Filed: 08/23/24 17:18> Clinical Impression: Anxiety, Lightheadedness Disposition: HOME SELF-CARE Condition: Good Additional Instructions: Your cardiac workup today was unremarkable. CT brain showed no obvious acute intracranial process. As we discussed, anxiety could be playing a role in your symptoms as they have been ongoing for multiple weeks to months. I do recommend follow-up with your PCP to discuss. Return to the ER for any worsening symptoms. I had low suspicion the bump on the back your neck is acutely infectious as exam is unremarkable. If you would like to stop taking the antibiotic that urgent care provided you I believe this is reasonable. Continue to monitor your symptoms and return to the ER for any worsening symptoms. Follow-up with your PCP in the next 1 to 3 days. Referrals: Ras Barney MD [Primary Care Provider] - 1-2 days
[2024-08-23 12:39] LABS: Basophils # (A) 0.08 10*3/uL (0.00-0.10); Eosinophils # (A) 0.34 10*3/uL (0.04-0.35); Eosinophils % (A) 4.1 %; HCT 34.9 % (37.2-46.3); HGB 10.6 g/dL (12.0-15.0); Lymphocytes # (A) 2.31 10*3/uL (0.90-5.00); Lymphocytes % (A) 28.1 %; MCH 20.5 pg (27.0-32.0); MCHC 30.4 g/dL (32.0-37.0); MCV 67.6 fL (80.0-97.0); Mean Platelet Volume 9.1 fL (9.5-12.2); Monocytes # (A) 0.55 10*3/uL (0.20-1.00); Monocytes % (A) 6.7 %; Neutrophils # (A) 4.91 10*3/uL (1.80-7.70); Neutrophils % (A) 59.7 %; Platelet Count 428 10*3/uL (140-440); RBC 5.16 10*6/uL (4.10-5.20); RDW 18.9 % (11.5-14.5); WBC 8.22 10*3/uL (4.50-10.00)
[2024-08-23 12:49] LABS: INR 0.9 (<1.2); Partial Thromboplastin Time 24.4 sec (22.0-30.0); Prothrombin Time 10.6 sec (10.0-12.5)
[2024-08-23 12:55] LABS: ALT 19 U/L (4-34); AST 20 U/L (14-36); African American GFR (CKD) >90 (>60 ml/min/1.73 sqM); Alkaline Phosphatase 71 U/L (38-126); Anion Gap 9 mmol/L; Blood Urea Nitrogen 14 mg/dL (7-17); Calcium 9.4 mg/dL (8.4-10.2); Carbon Dioxide 24 mmol/L (22-30); Chloride 104 mmol/L (98-107); Glucose 97 mg/dL (74-99); Non-African American GFR(CKD) >90 (>60 ml/min/1.73 sqM); Sodium 137 mmol/L (137-145); Total Bilirubin 0.7 mg/dL (0.2-1.3); Total Protein 7.1 g/dL (6.3-8.2)
--- NOTE | 2024-08-23 13:12 | XR ---
EXAMINATION TYPE: XR chest 2V DATE OF EXAM: 08/23/2024 12:44 PM COMPARISON: None CLINICAL INDICATION: Female, 34 years old with history of Chest Pain; [facility] TECHNIQUE: XR chest 2V Frontal and lateral views of the chest. FINDINGS: Lungs/Pleura: There is no evidence of pleural effusion, focal consolidation, or pneumothorax. Pulmonary vascularity: Unremarkable. Heart/mediastinum: Cardiomediastinal silhouette is unremarkable. Musculoskeletal: No acute osseous pathology. Other findings: None IMPRESSION: No acute cardiopulmonary disease/process. [facility], , 08/23/2024 1:10 PM
--- NOTE | 2024-08-23 14:37 | CT ---
EXAMINATION TYPE: CT brain wo con DATE OF EXAM: 08/23/2024 2:30 PM COMPARISON: None. CLINICAL INDICATION: Female, 34 years old with history of near syncope, recurrent, near syncope/heada deandra TECHNIQUE: Brain: Axial CT images of the brain were obtained with coronal and sagittal reformats created and rev iewed. Contrast used: None. Oral contrast used: None. CT DLP: 1156.4 mGycm, Automated exposure control for dose reduction was used. FINDINGS: Brain: Extra-axial spaces: No abnormal extra-axial fluid collections. Ventricular system: Within normal limits Cerebral parenchyma: No acute intraparenchymal hemorrhage or mass effect. The means-white junction is well differentiated. Cerebellum: Unremarkable. Mass effect: No evidence of midline shift. Intracranial vasculature: unremarkable Soft tissues: Normal. Calvarium/osseous structures: No depressed skull fracture. Paranasal sinuses and mastoid air cells: Mild scattered paranasal sinus disease. Visualized orbits: Orbital contents are intact. IMPRESSION: No acute intracranial process. [facility], , 08/23/2024 2:35 PM
[2024-08-23 15:26] VITALS: BP 124/87; PULSE 87; RESP 16; TEMP 98.8
[2024-08-23] MEDS: dexAMETHasone 4 MG TAB PO STA (15:28)
== END 2024-08-23 15:29 | disposition home or self-care (01) ==
LOC: EC 12:05
DX: R42 Dizziness and giddiness (principal); F41.9 Anxiety disorder, unspecified
CPT/HCPCS: 36415; 93005; 80053; 83735; 84484; 85025; 85610; 85730; 71046; 70450; 99285; J8540